=== PATIENT | male | born 1970 | race Caucasian/White ===

== ENCOUNTER 2021-05-08 13:20 | Outpatient (CLI) | payer MEDICAID ==
[2021-05-08 15:05] LABS: ABG Base Excess -2.2 mmol/L (-2.0-3.0); ABG HCO3 22.3 mmol/L (20.0-26.0); ABG Methemoglobin 0.5 % (0.0-1.5); ABG Oxygen Saturation 96.1 % (95.0-99.0); ABG PCO2 37.8 mm Hg; ABG PH 7.389 pH Units (7.350-7.450)
[2021-05-08 15:08] LABS: Hematocrit 49.2 % (35.5-45.6); Hemoglobin 16.1 gm/dl (11.8-15.2); Mean Corpuscular HGB Conc 33 % (32-34); Mean Corpuscular Volume 84 fl (84-94); Platelet Count 241 K/mm3 (140-440); Red Cell Distribution Width 14.6 % (13.2-15.2)
[2021-05-08 15:29] LABS: Alanine Aminotransferase 24 units/L (7-56); Albumin 4.6 g/dL (3.9-5); BUN/Creatinine Ratio 9; Blood Urea Nitrogen 11 mg/dL (9-20); Calcium 9.5 mg/dL (8.4-10.2); Chol/HDL Ratio 4.26 %; HDL Cholesterol 56 mg/dL (40-59); Hemolysis Index 15; LDL Cholesterol,Direct 168 mg/dL (50-130)
--- NOTE | 2021-05-08 16:49 | XRay Report ---
XR chest routine 2V INDICATION / CLINICAL INFORMATION: Pulmonary fibrosis. COMPARISON: CT of the chest from 03/12/2014. FINDINGS: SUPPORT DEVICES: None. HEART /PULMONARY VASCULATURE: No significant abnormality. LUNGS / PLEURA: The lungs are hyperexpanded with severe emphysema. There is suture material overlying the right upper lung. Basilar predominant chronic interstitial markings again noted, compatible with fibrosis. No focal airspace consolidation. No sizable pleural effusion. No pneumothorax. Signer Name: Román Galaviz MD Signed: 05/08/2021 4:45 PM Workstation Name: [id number]
--- NOTE | 2021-05-09 08:59 | Cat Scan Report ---
CT CHEST WITH CONTRAST INDICATION / CLINICAL INFORMATION: J84.10. TECHNIQUE: Axial CT images were obtained through the chest after 100 cc of Omnipaque [address] scans at this location are performed using CT dose reduction for ALARA by means of automated exposure control. COMPARISON: 08/11/2015 FINDINGS: HEART: No significant abnormality. CORONARY ARTERY CALCIFICATION: Present -- Mild. THORACIC AORTA: No significant abnormality. MEDIASTINUM / SAJI: No significant abnormality. PLEURA: No pleural effusion. No pneumothorax. LUNGS: Severe emphysematous changes are again noted bilaterally. Linear scarring in both apical regio ns is unchanged. No evidence for suspicious nodule or mass. No acute infiltrate or interstitial lung disease. ADDITIONAL FINDINGS: None. UPPER ABDOMEN: No significant abnormality. SKELETAL SYSTEM: No significant abnormality. IMPRESSION: Severe emphysematous changes. No significant change since 08/10/2014. Signer Name: Adebayo Oliveira Jr, MD Signed: 05/09/2021 8:54 AM Workstation Name: [id number]
== END 2021-05-08 13:21 | disposition home or self-care (01) ==
LOC: CT 13:20
PROVIDERS: ATTEND Internal Medicine
DX: J43.9 Emphysema, unspecified (principal); I25.10 Atherosclerotic heart disease of native coronary artery without angina pectoris; J84.10 Pulmonary fibrosis, unspecified; J30.89 Other allergic rhinitis; K21.9 Gastro-esophageal reflux disease without esophagitis; E05.00 Thyrotoxicosis with diffuse goiter without thyrotoxic crisis or storm; Z86.711 Personal history of pulmonary embolism
CPT/HCPCS: 36415; 36600; 71046; 71260; 80053; 80061; 82164; 82803; 84436; 84443; 85027; 86021; 86038; 86431; Q9967